=== PATIENT | female | born 1960 ===

== ENCOUNTER 2019-09-24 09:46 | Emergency (ER) | payer SELFPAY ==
--- NOTE | 2019-09-24 11:00 | UC ---
General HPI - HPI Summary HPI Summary: This is a telehealth visit performed by phone with the patient. It was performed telehealth to decrease the risk of transmission of Covid 19. Patient is 58 years old and she is concerned about Covid virus and would like testing of Covid virus. Patient reports since June 2019 she's had a cough.. She had the flu at that time improved from the fluids continued to have a cough ever since she still has congestion in her ears feel clogged. Is not having any shortness of breath. In June she did have vomiting diarrhea and a fever but no recent fevers. No known contacts with any be with Covid 19. - History of Current Complaint Stated Complaint: COUGH Time Seen by Provider: 09/24/19 10:53 - Allergy/Home Medications Home Medications: Home Medications Azithromycin 200/5 SUSP(NF) [Zithromax 200 mg/5 ml SUSP(NF)] 0 mg PO SEE INSTRUCTIONS #1 btl 09/24/19 [Rx] PMH/Surg Hx/FS Hx/Imm Hx Previously Healthy: Yes - patient reports history of cancer. - Family History Known Family History: Positive: Non-Contributory Review of Systems All Other Systems Reviewed And Are Negative: Yes Constitutional: Positive: Other - SEE HPI ENT: Positive: Other - SEE HPI Respiratory: Positive: Cough Gastrointestinal: Positive: Vomiting - SEE HPI Is Patient Immunocompromised?: No Physical Exam - Summary Physical Exam Summary: This is a to the health visits. I discussed the patient's symptoms over the phone and no physical examination was performed. Triage Information Reviewed: No Course/Dx - Course Course Of Treatment: With this toe health visits patient reports no recent fevers and no present shortness of breath. With her having a cough for several months question of whether or not she may have a bacterial bronchitis or pneumonia we discussed treatment with an antibiotic. Patient reports she can only have liquid antibiotics. Patient prefers to have a prescription for the antibiotic to be used if needed. I sent and liquid azithromycin. Covid swab was done by nursing in the parking lot. Covid tests results are pending. Patient is to be in self-isolation and follow-up with [facility]. - Diagnoses Provider Diagnosis: Cough Discharge ED - Sign-Out/Discharge Documenting (check all that apply): Patient Departure All imaging exams completed and their final reports reviewed: No Studies - Discharge Plan Condition: Stable Disposition: HOME Prescriptions: Azithromycin 200/5 SUSP(NF) [Zithromax 200 mg/5 ml SUSP(NF)] 0 mg PO SEE INSTRUCTIONS #1 btl Patient Education Materials: Acute Cough (ED) Forms: COVID-19 Tested & Isolation Referrals: [facility] [place] [facility]FERR[facility] [Outside] Additional Instructions: PLACE YOURSELF IN HOME ISOLATION. THE [facility] DEPARTMENT WILL CONTACT YOU. CONTACT THEM TOMORROW IF YOU HAVE NOT HEARD FROM THEM. FOLLOW UP WITH YOUR DOCTOR IF NOT COMPLETELY IMPROVED. GO TO THE EMERGENCY DEPARTMENT IF NOT IMPROVED OR WORSE OR ANY QUESTIONS OR CONCERNS - Billing Disposition and Condition Condition: STABLE Disposition: Home
== END 2019-09-24 11:07 | disposition home or self-care (01) ==
LOC: UCEAST 09:46
DX: R05 Cough (principal); Z20.828 Contact with and (suspected) exposure to other viral communicable diseases
CPT/HCPCS: 99211; G0463; U0002